=== PATIENT | male | born 1950 | race Caucasian/White ===

== ENCOUNTER 2019-01-07 18:37 | Emergency (ER) | payer BC, MEDICARE, OTHER ==
--- NOTE | 2019-01-07 19:32 | ED ---
GI/ HPI - HPI Summary HPI Summary: 68 year old male presents with epigastric pain for past two days. He states he' s had a month with abdominal pain but got worst for the past couple days. He was having diarrhea up until yesterday. He was seen at [facility] 2 days ago and was told he has gallstones. He went home and had some cheese and then have extreme pain overnight. had ultrasound there showed gallstones but no cholecystitis was seen. wbc and LFTs were normal there today. Lipase is normal there. He was given morphine and his pain resolved. He denies any chest or shortness breath. Has not eaten anything. was transferred here for surgery consult. - History of Current Complaint Chief Complaint: EDAbdPain Time Seen by Provider: 01/07/19 19:12 Stated Complaint: ABD PAIN PER EMS Pain Intensity: 2 - Allergy/Home Medications Allergies/Adverse Reactions: Allergies Allergy/AdvReac Type Severity Reaction Status Date / Time bee venom protein (honey bee) Allergy Hives Verified 01/07/19 18:52 seafood Allergy Hives Uncoded 01/07/19 18:52 Home Medications: Home Medications Cholestyramine (with Sugar) [Questran] 4 gm PO DAILY PRN 01/07/19 [History Confirmed 01/07/19] Omeprazole 20 mg PO DAILY 01/07/19 [History Confirmed 01/07/19] Sertraline HCl [Zoloft] 50 mg PO DAILY 01/07/19 [History Confirmed 01/07/19] Simvastatin 20 mg PO DAILY 01/07/19 [History Confirmed 01/07/19] PMH/Surg Hx/FS Hx/Imm Hx Endocrine/Hematology History: Denies: Hx Anticoagulant Therapy Cardiovascular History: Denies: Hx Auto Implanted Cardiovert Defib Respiratory History: Denies: Hx Asthma Psychiatric History: Reports: Hx Anxiety Infectious Disease History: No Infectious Disease History: Denies: Traveled Outside the [place] in Last 30 Days - Family History Known Family History: Positive: Non-Contributory - Social History Alcohol Use: Occasionally Substance Use Type: Reports: None Review of Systems Negative: Fever Negative: Chest Pain Negative: Shortness Of Breath Positive: Abdominal Pain, Diarrhea, Nausea. Negative: Vomiting All Other Systems Reviewed And Are Negative: Yes Physical Exam Triage Information Reviewed: Yes Vital Signs On Initial Exam: Initial Vitals Temp Pulse Resp BP Pulse Ox 97.7 F 62 16 166/90 98 07/22/19 18:45 01/07/19 18:45 01/07/19 18:45 01/07/19 18:45 01/07/19 18:45 Vital Signs Reviewed: Yes Appearance: Positive: Well-Appearing Skin: Positive: Warm, Dry Head/Face: Positive: Normal Head/Face Inspection Eyes: Positive: Normal, Conjunctiva Clear ENT: Positive: Pharynx normal Respiratory/Lung Sounds: Positive: Clear to Auscultation, Breath Sounds Present Cardiovascular: Positive: Normal, RRR Abdomen Description: Positive: Nontender, Soft Bowel Sounds: Positive: Present Musculoskeletal: Positive: Normal Neurological: Positive: Normal Psychiatric: Positive: Normal Diagnostics - Vital Signs Vital Signs Temp Pulse Resp BP Pulse Ox 01/07/19 18:45 97.7 F 62 16 166/90 98 - Laboratory Lab Statement: Any lab studies that have been ordered have been reviewed, and results considered in the medical decision making process. Re-Evaluation - Re-Evaluation First Eval Re-Evaluation Time: 20:55 Comment: gave gingerale Second Eval Comment: states pain may be returning Third Eval Comment: tolerate crackers, patient is heistant to go home but has no severe pain at this time. GIGU Course/Dx - Course Course Of Treatment: 68 year old male presents with epigastric pain for past two days. He states he's had a month with abdominal pain but got worst for the past couple days. He was having diarrhea up until yesterday. He was seen at [facility] 2 days ago and was told he has gallstones. He went home and had some cheese and then have extreme pain overnight. had ultrasound there showed gallstones but no cholecystitis was seen. wbc and LFTs were normal there today. Lipase is normal there. He was given morphine and his pain resolved. He denies any chest or shortness breath. Has not eaten anything. was transferred here for surgery consult. On initial exam patient was nontender abdomen. Consult surgery and he came and saw the patient and believe that surgery is not indicated at this time. Discuss with patient and will try a by mouth challenge. He tolerated crackers and applesauce. Patient keeps saying that pain may increase and is worried about going home. discussed that has been here for 5 hours and not required any pain meds. vitals have been stable. discussed will give pain medication and have follow up with surgery. told if develop fever to return. patient understand and agrees with plan. - Diagnoses Differential Diagnoses - Male: Cholecystitis, Cholelithiasis, Gastritis Provider Diagnoses: Cholelithiasis Discharge - Sign-Out/Discharge Documenting (check all that apply): Patient Departure Patient Received Moderate/Deep Sedation with Procedure: No - Discharge Plan Condition: Good Disposition: HOME Prescriptions: oxyCODONE/Acetamin 5/325 MG* [Percocet 5/325 TAB*] 1 tab PO Q6H PRN #16 tab MDD 4 PRN Reason: Pain Patient Education Materials: Biliary Colic (ED) Referrals: Zach Ledezma DO [Primary Care Provider] - William Glynn MD [Medical Doctor] - Additional Instructions: take tyenlol every 6 hours for pain, use percocet every 6 hours for pain avoid fatty foods follow up with surgery Return to ED if develop any fever, or any new or worsening symptoms - Billing Disposition and Condition Condition: GOOD Disposition: Home
--- NOTE | 2019-01-07 21:44 | CONS ---
CC: Dr. Jonatan Ledezma, [facility] * CONSULTATION REPORT: DATE OF CONSULT: 01/07/19 - EMERGENCY DEPT REFERRING PROVIDER: Georgiana Frazier, nurse practitioner in the emergency room. REASON FOR CONSULTATION: Diarrhea and abdominal pain. HISTORY OF PRESENT ILLNESS: Fabio Tidwell is a 68-year-old gentleman who lives in the [facility] area, who was transferred to the emergency room here today from [facility] with complaints of several months of bloating and diarrhea with large amounts of gas after eating just about every meal. This has been worse over the past several days. Yesterday, he had presented to the [facility] Emergency Room there and had a normal laboratory workup including normal white blood cell count and liver transaminases. He underwent a CT scan of his abdomen and pelvis, which was unremarkable other than a 1.2-cm stone in the neck of the gallbladder without gallbladder wall thickening and pericholecystic fluid. Apparently, he was discharged home after being seen and ate a larger meal and had abdominal pain, once again presented back to the emergency room today. Today, once again, he had normal laboratory workup. He has no fever or tachycardia. He underwent an ultrasound of his gallbladder, which confirmed a gallstone in the neck of the gallbladder without any gallbladder wall thickening , pericholecystic fluid or ductal dilation. Due to the gallstone findings, he was sent for surgical consultation here to the emergency room. He denies nausea or vomiting. He has had no fevers. He has had no jaundice. He has no heartburn type symptoms. His appetite has been good and he has not had weight loss. He has undergone a colonoscopy in the past, he said which was unremarkable. He describes the bowel movements as watery and green. There is no blood or black tarry stools. His main complaint also is gas. Pain he describes is crampy in nature and may start several hours after eating. This is mainly in the upper abdomen left and just about the same as the right side. It does not radiate to his back or into the right shoulder. PAST MEDICAL HISTORY: 1. Prostate cancer. 2. Skin cancers. 3. Gastroesophageal reflux disease. 4. Hypercholesterolemia. PAST SURGICAL HISTORY: No abdominal surgeries. MEDICATIONS: Include: 1. Cholestyramine, which was recently started for the diarrhea. 2. Omeprazole 20 mg daily, also recently started. 3. Sertraline 50 mg daily. 4. Simvastatin 20 mg p.o. daily. ALLERGIES: He is allergic to BEE STINGS and SHELLFISH. SOCIAL HISTORY: He is retired. He lives with his in [facility]. He does not use tobacco or alcohol. REVIEW OF SYSTEMS: Cerebrovascular: No dizziness or visual disturbances. Cardiovascular: No chest pain or shortness of breath. Pulmonary: No wheezing or hemoptysis. GI: As per above. He has no dysphagia. He has never been told he had gallbladder issues before. He also had C. diff colitis after use of antibiotics several years ago, requiring admission for almost a week at [facility]. He has not been on any antibiotics recently. PHYSICAL EXAM: Temperature 97.7, pulse 62, blood pressure 166/98, oxygen saturation 98%. In general, he is a well-developed, well-nourished male, appears much younger than stated age, appears to be in no apparent distress, sitting upright in the [place]. His lungs were clear to auscultation with normal respiratory effort. Heart was regular rate and rhythm without murmurs, rubs or gallops. His abdomen is soft and nondistended. He has normoactive bowel sounds throughout. There are no prior surgical incisions. There are no hernias at the umbilicus or in the groin. He has some mild tenderness in the upper abdomen on both sides, left and right without rebound, guarding, or mass. There is no organomegaly. There is no lower abdominal tenderness. There is no generalized peritoneal irritation or rigidity. IMPRESSION: Upper abdominal pain after eating associated with bloating, cramping and passed a large amounts of gas and diarrhea. This has been going on for several months, appears to be worsening over the past several days. His laboratory workup has all been complete. He has had no blood per rectum, no weight loss. Imaging studies included a CT scan and ultrasound above show only a 1.2-cm gallstone towards the neck of the gallbladder and the infundibulum. There is no evidence of cholecystitis or other acute abnormality. I do not believe that his symptoms are related at this point to the gallbladder. This had been bloating and diarrhea with large amounts of gas, it is consistent with gallbladder with the gallstones. In addition, he is not certain if there are any foods and certainly has not tried to see if there are any foods that he could avoid that may help his symptoms. This seems to happen just about every meal that he eats. I would consider gastroenterology consultation for a complete evaluation. Cholecystectomy could always be considered in the future. I do not believe that he needs admission for his present illness. I discussed this with Georgiana Frazier here in the emergency room. [id number]/CPS #: [id number] MTDD
[2019-01-08 00:42] VITALS: BP 137/88
== END 2019-01-08 00:39 | disposition home or self-care (01) ==
LOC: ED 18:37
DX: K80.20 Calculus of gallbladder without cholecystitis without obstruction (principal); Z79.899 Other long term (current) drug therapy
CPT/HCPCS: 99282